=== PATIENT | female | born 1980 | race Caucasian/White ===

== ENCOUNTER 2018-08-16 19:16 | Emergency (ER) | payer MEDICAID, OTHER ==
[~2018-08-16] VITALS: Ht 160 cm; Wt 67.3 kg
[~2018-08-16 19:16] MED LIST: NOCURR
[2018-08-16] MEDS ORDERED: ONDANSETRON HCL 4 MG TABLET PO ONE (21:45)
[2018-08-16] MEDS ORDERED: GuaiFENesin/D-METHORPHAN [SUGAR-FREE] 200-20MG/10 ML SYRUP UDCUP PO ONE (21:45)
[2018-08-16] MEDS ORDERED: MECLIZINE HCL 25 MG TABLET PO ONE (21:45)
[2018-08-16] MEDS ORDERED: ACETAMINOPHEN 500 MG TABLET PO ONE (21:45)
[2018-08-16] MEDS ORDERED: DiphenhydrAMINE HCL 25 MG CAPSULE PO ONE (22:15)
[2018-08-16 22:49] VITALS: BP 124/76
== END 2018-08-16 23:07 | disposition home or self-care (01) ==
LOC: EMS 19:17
DX: J40 Bronchitis, not specified as acute or chronic (principal); J06.9 Acute upper respiratory infection, unspecified; R42 Dizziness and giddiness; R07.89 Other chest pain; F19.90 Other psychoactive substance use, unspecified, uncomplicated
CPT/HCPCS: 81025; 93005; 99284; Q0162

== ENCOUNTER 2019-05-14 17:06 | Emergency (ER) | payer OTHER ==
[~2019-05-14] VITALS: Ht 165.1 cm; Wt 63.6 kg
[2019-05-14] MEDS ORDERED: CHOL100018 PO (17:28)
[2019-05-14] MEDS ORDERED: LORA10TA7 PO (17:28)
[2019-05-14] MEDS ORDERED: KETOROLAC TROMETHAMINE 30 MG/ML VIAL IM ONE (17:45)
[2019-05-14] MEDS ORDERED: IBUPROFEN 800 MG TABLET PO ONE (18:30)
[2019-05-14 19:13] VITALS: BP 120/70
== END 2019-05-14 19:53 | disposition home or self-care (01) ==
LOC: EMS 17:11
DX: M94.0 Chondrocostal junction syndrome [Tietze] (principal); F19.90 Other psychoactive substance use, unspecified, uncomplicated; Z79.899 Other long term (current) drug therapy
CPT/HCPCS: J1885

== ENCOUNTER 2020-06-08 16:46 | Emergency (ER) | payer MEDICAID, OTHER ==
[~2020-06-08] VITALS: Ht 162.6 cm; Wt 59.1 kg
[~2020-06-08 16:46] MED LIST changes: +CHOL100018 PO; +LORA10TA7 PO; -NOCURR
[2020-06-08] MEDS ORDERED: ACET-2865 PO (16:54)
[2020-06-08] MEDS ORDERED: ACETAMINOPHEN 325 MG TABLET PO ONE (18:15)
[2020-06-08] MEDS ORDERED: CEPHALEXIN MONOHYDRATE 500 MG CAPSULE PO ONE (19:00)
[2020-06-08 19:11] LABS: COVID AG,FIA SOURCE NASOPHARYNGEAL
[2020-06-08 20:30] VITALS: BP 110/68
[2020-06-08] MEDS ORDERED: IBUPROFEN 400 MG TABLET PO ONE (20:45)
== END 2020-06-08 21:00 | disposition home or self-care (01) ==
LOC: EMS 16:46
DX: N61.0 Mastitis without abscess (principal); R51.9 Headache, unspecified; F13.10 Sedative, hypnotic or anxiolytic abuse, uncomplicated; Z20.828 Contact with and (suspected) exposure to other viral communicable diseases
CPT/HCPCS: 87426; 99283; U0003

== ENCOUNTER 2022-09-26 19:15 | Emergency (ER) | payer MEDICAID, OTHER ==
[~2022-09-26] VITALS: Ht 160 cm; Wt 79.5 kg
[~2022-09-26 19:15] MED LIST changes: +ACET-2247 PO; -CHOL100018 PO; -LORA10TA7 PO
[2022-09-26 19:58] LABS: BASOPHILS % (AUTO) 0.7 % (0.0-2.0); EOSINOPHILS % (AUTO) 3.4 % (1.0-6.0); HEMATOCRIT 36.3 % (36-46); HEMOGLOBIN 12.1 g/dL (12.0-16.0); LYMPHOCYTES # (AUTO) 3.7 K/uL (1.0-4.8); LYMPHOCYTES % (AUTO) 27.1 % (22.0-44.0); MEAN CORPUSCULAR HEMOGLOBIN 29.8 pg (26.0-34.0); MEAN CORPUSCULAR HGB CONC 33.3 G/dL (31.0-37.0); MEAN CORPUSCULAR VOLUME 90 fL (80-100); MONOCYTES % (AUTO) 7.6 % (2.0-9.0); NEUTROPHILS # (AUTO) 8.4 K/uL (1.8-7.7); NEUTROPHILS % (AUTO) 61.2 % (40.0-70.0); PLATELET COUNT (AUTO) 309 K/uL (150-450); RED BLOOD CELL COUNT(AUTO) 4.05 MIL/uL (4.00-5.20)
[2022-09-26] MEDS ORDERED: IBUPROFEN 600 MG TABLET PO ONE (20:00)
[2022-09-26] MEDS ORDERED: METHOCARBAMOL 500 MG TABLET PO ONE (20:00)
[2022-09-26 20:06] LABS: ANION GAP 8 mmol/L (8-16); CALCIUM, TOTAL 9.4 mg/dL (8.8-10.5); CARBON DIOXIDE 26 mmol/L (22-29); CHLORIDE 103 mmol/L (98-107); CREATININE 0.78 mg/dL (0.60-1.30); GLOMERULAR FILTR. RATE CALC > 60 mL/min (>60); GLUCOSE,RANDOM 111 mg/dL (70-110); POTASSIUM 3.5 mmol/L (3.5-5.1); SODIUM SERUM 137 mmol/L (136-145); UREA NITROGEN, BLOOD 11 mg/dL (7-18)
[2022-09-26 20:12] LABS: ALANINE AMINOTRANSFERASE 21 U/L (12-78); ALBUMIN 3.9 g/dL (3.4-5.0); ALKALINE PHOSPHATASE 66 U/L (46-116); ASPARTATE AMINOTRANSFERASE 15 U/L (15-37); BILIRUBIN,TOTAL 0.4 mg/dL (0.1-1.0); LIPASE 127 U/L (73-393); TOTAL PROTEIN, SERUM 7.9 g/dL (6.4-8.2)
[2022-09-26] MEDS ORDERED: METH-812 PO (21:01)
[2022-09-26] MEDS ORDERED: ACET-66 PO (21:01)
[2022-09-26] MEDS ORDERED: IBUP-1554 PO (21:01)
[2022-09-26 21:09] VITALS: BP 116/75
== END 2022-09-26 22:04 | disposition home or self-care (01) ==
LOC: EMS 19:16
DX: S46.812A Strain of other muscles, fascia and tendons at shoulder and upper arm level, left arm, initial encounter (principal); R07.89 Other chest pain; F19.90 Other psychoactive substance use, unspecified, uncomplicated; X50.3XXA Overexertion from repetitive movements, initial encounter; Y93.89 Activity, other specified; Y92.89 Other specified places as the place of occurrence of the external cause; Y99.8 Other external cause status
CPT/HCPCS: 71045; 80053; 83690; 84484; 84703; 85025; 93005; 99285; 36415-L1; 36415-TC

== ENCOUNTER 2024-12-10 20:17 | Emergency (ER) | payer OTHER ==
[~2024-12-10] VITALS: Ht 160 cm; Wt 85.0 kg
[~2024-12-10 20:17] MED LIST changes: +ACET-66 PO; +IBUP-1554 PO; +METH-812 PO
[2024-12-10 20:36] VITALS: TEMP 97.9
[2024-12-10 21:19] LABS: BASOPHILS % (AUTO) 0.5 % (0.0-2.0); EOSINOPHILS % (AUTO) 1.4 % (1.0-6.0); HEMATOCRIT 38.8 % (36-46); HEMOGLOBIN 13.2 g/dL (12.0-16.0); LYMPHOCYTES # (AUTO) 4.7 K/uL (1.0-4.8); MEAN CORPUSCULAR HEMOGLOBIN 30.4 pg (26.0-34.0); MEAN CORPUSCULAR HGB CONC 34.1 G/dL (31.0-37.0); MEAN CORPUSCULAR VOLUME 89 fL (80-100); MONOCYTES # (AUTO) 1.1 K/uL (0.1-1.0); MONOCYTES % (AUTO) 6.7 % (2.0-9.0); NEUTROPHILS # (AUTO) 10.2 K/uL (1.8-7.7); NEUTROPHILS % (AUTO) 62.4 % (40.0-70.0); PLATELET COUNT (AUTO) 343 K/uL (150-450); RED BLOOD CELL COUNT(AUTO) 4.36 MIL/uL (4.00-5.20); RED CELL DISTRIBUTION WIDTH 13.5 % (11.5-14.5); WHITE BLOOD COUNT (AUTO) 16.4 K/uL (4.5-11.0)
[2024-12-10 21:30] LABS: ANION GAP 8 mmol/L (8-16); CALCIUM, TOTAL 10.1 mg/dL (8.8-10.5); CARBON DIOXIDE 28 mmol/L (22-29); CHLORIDE 101 mmol/L (98-107); CREATININE 0.91 mg/dL (0.60-1.30); GLOMERULAR FILTR. RATE CALC > 60 mL/min (>60); GLUCOSE,RANDOM 93 mg/dL (70-110); POTASSIUM 3.6 mmol/L (3.5-5.1); SODIUM SERUM 137 mmol/L (136-145); UREA NITROGEN, BLOOD 13 mg/dL (7-18)
[2024-12-10 21:38] LABS: TROPONIN I-HIGH SENSITIVITY 5 ng/L (<51)
[2024-12-11 02:45] VITALS: BP 128/77; PULSE 71; RESP 17; O2SAT 97
== END 2024-12-11 02:55 | disposition home or self-care (01) ==
LOC: EMS 20:35
DX: S46.811A Strain of other muscles, fascia and tendons at shoulder and upper arm level, right arm, initial encounter (principal); R07.89 Other chest pain; F15.90 Other stimulant use, unspecified, uncomplicated; X58.XXXA Exposure to other specified factors, initial encounter; Y93.89 Activity, other specified; Y92.89 Other specified places as the place of occurrence of the external cause; Y99.8 Other external cause status
CPT/HCPCS: 71045; 80048; 84484; 85025; 93005; 99285; 36415-L1; 36415-TC